=== PATIENT | male | born 1975 | race Caucasian/White ===

== ENCOUNTER 2019-03-18 13:19 | Emergency (ER) | payer SELFPAY ==
[2019-03-18] MEDS ORDERED: Doxycycline 100 MG Cap ONE (13:30)
--- NOTE | 2019-03-18 13:49 | EDM.PDOC ---
ED HPI GENERAL MEDICAL PROBLEM - General Chief Complaint: General Stated Complaint: SWELLING OF LEFT SIDE OF BACK Time Seen by Provider: 03/18/19 13:25 Source of Information: Reports: Patient History Limitations: Reports: No Limitations - History of Present Illness INITIAL COMMENTS - FREE TEXT/NARRATIVE: Pt spouse noticed a skin rash over the right side of the upper back today and brought him into emergency room to be checked. Apparently patient is not sure how he developed the rash. He does claims he had some itching in his upper back.Pt is not sure how long he has had the rash. Pt [place] int [place] and [place]. No fever or chills. No body aches. No joint pain or swelling. Severity: Mild Improves with: Reports: None Worsens with: Reports: None Associated Symptoms: Denies: Confusion, Chest Pain, Cough, Diaphoresis, Fever/ Chills, Headaches, Nausea/Vomiting, Rash, Seizure, Shortness of Breath, Syncope , Weakness ED ROS GENERAL - Review of Systems Review Of Systems: See Below Constitutional: Denies: Fever, Malaise, Weakness HEENT: Denies: Ear Pain, Rhinitis, Throat Pain Respiratory: Denies: Shortness of Breath, Pleuritic Chest Pain, Cough, Sputum Cardiovascular: Denies: Chest Pain, Lightheadedness Endocrine: Denies: Fatigue GI/Abdominal: Denies: Diarrhea, Nausea, Vomiting Musculoskeletal: Denies: Back Pain, Joint Swelling, Muscle Pain Skin: Reports: Pruritis, Rash. Denies: Bruising, Wound Neurological: Denies: Confusion, Dizziness, Headache, Numbness, Tingling Psychiatric: Reports: Agitation ED EXAM, GENERAL - Physical Exam Exam: See Below Exam Limited By: No Limitations General Appearance: Alert, WD/WN, No Apparent Distress Eye Exam: Bilateral Eye: EOMI, PERRL Ears: Normal External Exam, Normal Canal, Hearing Grossly Normal, Normal TMs Ear Exam: Bilateral Ear: Auricle Normal, Canal Normal, TM normal Nose: Normal Inspection, Normal Mucosa, No Blood Throat/Mouth: Normal Inspection, Normal Lips, Normal Teeth, Normal Gums, Normal Oropharynx, Normal Voice, No Airway Compromise Head: Atraumatic, Normocephalic Neck: Normal Inspection, Supple, Non-Tender, Full Range of Motion Respiratory/Chest: No Respiratory Distress, Lungs Clear, Normal Breath Sounds, No Accessory Muscle Use, Chest Non-Tender Cardiovascular: Normal Peripheral Pulses, Regular Rate, Rhythm, No Edema, No Gallop, No JVD, No Murmur, No Rub Back Exam: Full Range of Motion. No: CVA Tenderness (R), CVA Tenderness (L), Muscle Spasm, Paraspinal Tenderness Neurological: Alert, Oriented, CN II-XII Intact, Normal Cognition, Normal Gait Skin Exam: Warm, Rash (There is a large circular pinkish rash over the right upper back close to right axilla. The rash is approximately 8cm in diameter. The is dark red rash in the cetnere followed by a large halo of normal skin and the circumference has large spreading irregular margin.) Course - Vital Signs Text/Narrative:: Pt and spouse reassured that he has developed a large bulls like like pattern rash over the upper back. Also patient works in the [employer]. This does appear very much like tick bite with bulls eye rash. He does not have any constitutional symptoms. I have empirically started him on Doxycycline 100mg twice daily. Advised to finish the antibiotics and rash should resolve. Return to clinic or emergency room, if he develops high grade fever with chills. , severe muscle aches, backaches or joint pain or swelling. Departure - Departure Time of Disposition: 01:50 Disposition: Still A Patient 30 Condition: Fair Clinical Impression: Tick bite of back - Discharge Information *PRESCRIPTION DRUG MONITORING PROGRAM REVIEWED*: Not Applicable *COPY OF PRESCRIPTION DRUG MONITORING REPORT IN PATIENT WHITNEY: Not Applicable Instructions: Lyme Disease Forms: ED Department Discharge Additional Instructions: Discharge home. Doxycycline 100mg by mouth every 12 hours. Follow up as needed in the clinic with primary provider. Call or return to the ER if you have any questions or concerns. - Problem List & Annotations (1) Tick bite of back SNOMED Code(s): 54396986 Code(s): S30.860A - INSECT BITE (NONVENOMOUS) OF LOWER BACK AND PELVIS, INIT ; W57.XXXA - BIT/STUNG BY NONVENOM INSECT & OTH NONVENOM ARTHROPODS, INIT Status: Acute - Problem List Review Problem List Initiated/Reviewed/Updated: Yes - Assessment/Plan Assessment:: Tick bite of the back with bulls eye rash Plan: Pt and spouse reassured that he has developed a large bulls like like pattern rash over the upper back. Also patient works in the [employer]. This does appear very much like tick bite with bulls eye rash. He does not have any constitutional symptoms. I have empirically started him on Doxycycline 100mg twice daily. Advised to finish the antibiotics and rash should resolve. Return to clinic or emergency room, if he develops high grade fever with chills. , severe muscle aches, backaches or joint pain or swelling.
== END 2019-03-18 13:40 | disposition home or self-care (01) ==
LOC: LB.ED 13:19
DX: S20.461A Insect bite (nonvenomous) of right back wall of thorax, initial encounter (principal); W57.XXXA Bitten or stung by nonvenomous insect and other nonvenomous arthropods, initial encounter
CPT/HCPCS: 99282; A9270